=== PATIENT | male | born 1975 | race Caucasian/White ===

== ENCOUNTER 2019-11-21 15:17 | Inpatient (IN) | payer BC, OTHER ==
[~2019-11-21] VITALS: Ht 175.3 cm; Wt 95.5 kg
--- NOTE | 2019-11-21 15:32 | NUR ---
PT PLACED LEVEL ONE STROKE ALERT PER ALINA PAGAN
[2019-11-21 15:43] LABS: BASOPHILS % (AUTO) 0.4 % (0-1); EOSINOPHILS # (AUTO) 0.2 X10'3 (0-0.9); EOSINOPHILS % (AUTO) 3.1 % (0-6); HEMATOCRIT 48.9 % (42.0-52.0); HEMOGLOBIN 16.5 g/dl (14.0-17.9); LYMPHOCYTES # (AUTO) 2.2 X10'3 (1.1-4.8); MEAN CORPUSCULAR HEMOGLOBIN 30.2 PG (27.0-31.0); MEAN CORPUSCULAR HGB CONC 33.8 g/dL (33.0-36.5); MEAN CORPUSCULAR VOLUME 89.4 FL (78-98); MEAN PLATELET VOLUME 6.5 FL (7.4-10.4); MONOCYTES # (AUTO) 0.8 X10'3 (0-0.9); MONOCYTES % (AUTO) 11.1 % (2-12); NEUTROPHILS # (AUTO) 4.2 X10'3 (1.8-7.7); NEUTROPHILS % (AUTO) 55.4 % (42-75); PLATELET COUNT 298 X10'3 (140-440); RED BLOOD COUNT 5.47 X10'6 (4.70-6.10); RED CELL DISTRIBUTION WIDTH 12.3 % (11.5-14.5); WHITE BLOOD COUNT 7.5 X10'3 (4.5-11.0)
[2019-11-21 15:55] LABS: ALANINE AMINOTRANSFERASE 64 U/L (12-78); ALBUMIN 4.3 G/DL (3.4-5.0); ALBUMIN/GLOBULIN RATIO 1.4 (1.1-1.5); ALKALINE PHOSPHATASE 127 IU/L (46-116); ANION GAP 12 (8-16); ASPARTATE AMINO TRANSFERASE 25 U/L (10-37); BILIRUBIN,TOTAL 0.2 MG/DL (0.1-1.0); BLOOD UREA NITROGEN 23 MG/DL (7-18); BUN/CREATININE RATIO 21.3 (5.4-32.0); CALCIUM 9.2 MG/DL (8.5-10.1); CHLORIDE 104 MMOL/L (99-107); CREATININE 1.08 MG/DL (0.60-1.10); GLUCOSE 176 MG/DL (70-104); POTASSIUM 3.3 MMOL/L (3.5-5.1); SODIUM 139 MMOL/L (135-145); TOTAL CARBON DIOXIDE 23.5 MMOL/L (24-32); TOTAL PROTEIN 7.4 G/DL (6.4-8.2); eGFR 74 ML/MIN
[2019-11-21] MEDS ORDERED: ondansetron/PF 4mg/2ml inj IV ONE ×2 (15:55→16:00)
[2019-11-21] MEDS ORDERED: normal saline 1000ML IV soln IVB ONE (16:15)
[2019-11-21] MEDS ORDERED: iohexol 350MG/ML 100ml bottle IV ONE (16:23)
[2019-11-21] MEDS ORDERED: aspirin 81mg tab.chew PO ONE (17:05)
[2019-11-21] MEDS ORDERED: potassium Cl 20 mEq SR tablet PO PRN ×2 (17:25)
[2019-11-21] MEDS ORDERED: magnesium 4gm in 100ml NS 100 ML IV PRN (17:25)
[2019-11-21] MEDS ORDERED: magnesium Cl slow-release 64mg tablet PO PRN (17:25)
[2019-11-21] MEDS ORDERED: acetaminophen 325mg tablet PO PRN (17:25)
[2019-11-21] MEDS ORDERED: potassium CL 10mEq/100ml bag 100 ML IV PRN ×2 (17:25)
[2019-11-21] MEDS ORDERED: ondansetron/PF 4mg/2ml inj IV PRN (17:25)
[2019-11-21] MEDS ORDERED: magnesium 2GM in 50ml NS 50 ML IV PRN (17:25)
[2019-11-21 17:35] LABS: ETHANOL 0.214 GM/DL (0.0-0.010)
[2019-11-21 18:14] LABS: CLARITY,URINE CLEAR (Clear); COLOR,URINE YELLOW (Yellow); GLUCOSE, URINE NEGATIVE (Neg); KETONES,URINE NEGATIVE (Neg); LEUKOCYTE ESTERASE ,URINE NEGATIVE (Neg); NITRITES, URINE NEGATIVE (Neg); OCCULT BLOOD,URINE NEGATIVE (Neg); PROTEIN,URINE NEGATIVE (Neg); UROBILINOGEN,URINE 0.2 E.U/dL (0.2-1.0)
[2019-11-21 18:15] LABS: URINE AMPHETAMINE SCREEN NEGATIVE (Neg); URINE BARBITUATE SCREEN NEGATIVE (Neg); URINE BENZODIAZEPINES SCREEN POSITIVE (Neg); URINE CANNABINOID SCREEN NEGATIVE (Neg); URINE COCAINE SCREEN NEGATIVE (Neg); URINE METHADONE SCREEN NEGATIVE (Neg); URINE OPIATE SCREEN NEGATIVE (Neg); URINE PHENCYCLIDINE SCREEN NEGATIVE (Neg)
[2019-11-21] MEDS ORDERED: SERT50TA10 PO (18:15)
[2019-11-21] MEDS ORDERED: LISI10TA4 PO (18:15)
[2019-11-21] MEDS ORDERED: ANAS1TAB10 PO (18:15)
[2019-11-21] MEDS ORDERED: ATOR40TA72 PO (18:15)
[2019-11-21] MEDS ORDERED: PRAZ5CAP2 PO (18:15)
[2019-11-21] MEDS ORDERED: METH54TA12 PO (18:15)
[2019-11-21] MEDS ORDERED: ALPR0.255 PO (18:15)
[2019-11-21] MEDS ORDERED: RABE20TA28 PO (18:15)
[2019-11-21] MEDS ORDERED: OMEG10006 PO (18:21)
[2019-11-21] MEDS ORDERED: ASPI-611 PO (18:21)
[2019-11-21] MEDS ORDERED: MULT-227 PO (18:21)
[2019-11-21 18:22] LABS: UA COLLECTION TYPE VOIDED
[2019-11-21] MEDS: K and/or MAG REPLACEMENT MC SCH (20:00)
--- NOTE | 2019-11-21 21:15 | NUR ---
RECEIVED PATIENT FROM ER AND ASSUMED PATIENT CARE
[2019-11-21 22:00] VITALS: BP 124/75
[2019-11-22 02:00] VITALS: BP 110/60
[2019-11-22 05:49] LABS: BASOPHILS % (AUTO) 0.4 % (0-1); EOSINOPHILS # (AUTO) 0.2 X10'3 (0-0.9); EOSINOPHILS % (AUTO) 2.6 % (0-6); HEMATOCRIT 45.8 % (42.0-52.0); HEMOGLOBIN 15.5 g/dl (14.0-17.9); LYMPHOCYTES # (AUTO) 1.5 X10'3 (1.1-4.8); LYMPHOCYTES % (AUTO) 22.5 % (21-51); MEAN CORPUSCULAR HEMOGLOBIN 30.2 PG (27.0-31.0); MEAN CORPUSCULAR HGB CONC 33.8 g/dL (33.0-36.5); MEAN CORPUSCULAR VOLUME 89.3 FL (78-98); MEAN PLATELET VOLUME 6.5 FL (7.4-10.4); MONOCYTES # (AUTO) 0.7 X10'3 (0-0.9); MONOCYTES % (AUTO) 11.2 % (2-12); NEUTROPHILS # (AUTO) 4.2 X10'3 (1.8-7.7); NEUTROPHILS % (AUTO) 63.3 % (42-75); PLATELET COUNT 270 X10'3 (140-440); RED BLOOD COUNT 5.13 X10'6 (4.70-6.10); RED CELL DISTRIBUTION WIDTH 12.5 % (11.5-14.5); WHITE BLOOD COUNT 6.7 X10'3 (4.5-11.0)
[2019-11-22 06:09] LABS: ALBUMIN 3.6 G/DL (3.4-5.0); ANION GAP 8 (8-16); BLOOD UREA NITROGEN 18 MG/DL (7-18); BUN/CREATININE RATIO 16.7 (5.4-32.0); CALCIUM 8.6 MG/DL (8.5-10.1); CHLORIDE 107 MMOL/L (99-107); CHOL/HDL RATIO 3.5 (0.00-4.99); CHOLESTEROL 186 MG/DL (0-200); CREATININE 1.08 MG/DL (0.60-1.10); GLUCOSE 103 MG/DL (70-104); HDL CHOLESTEROL 53 MG/DL (35-60); LDL CHOLESTEROL 108 MG/DL (50-100); POTASSIUM 4.3 MMOL/L (3.5-5.1); SODIUM 142 MMOL/L (135-145); TOTAL CARBON DIOXIDE 27.4 MMOL/L (24-32); TRIGLYCERIDES 176 MG/DL (20-135); eGFR 74 ML/MIN
--- NOTE | 2019-11-22 06:22 | NUR ---
REPORT GIVEN TO ROBIN WALLER
--- NOTE | 2019-11-22 06:30 | NUR ---
Patient in room [id number]. I have received report from Janeth WALLER and had the opportunity to ask questions and assume patient care.
[2019-11-22 07:00] VITALS: BP 124/74
[2019-11-22 08:00] VITALS: BP_SYST 141; BP_SYST 142; BP_SYST 146; BP_DIAS 86; BP_DIAS 94; BP_DIAS 99
[2019-11-22] MEDS: K and/or MAG REPLACEMENT MC SCH (08:00)
[2019-11-22 12:00] VITALS: BP 150/91
[2019-11-22 15:00] VITALS: BP 150/88
--- NOTE | 2019-11-22 17:10 | NUR ---
Patient discharged at this time met him in parking lot.
== END 2019-11-22 17:05 | disposition home or self-care (01) | DRG 93 ==
LOC: ER 15:17 → ED HOLD 17:24 → PCU 3S 21:02
PROVIDERS: ADMIT Internal Medicine; ATTEND Internal Medicine
DX: R47.81 Slurred speech (principal); I10 Essential (primary) hypertension; Z86.73 Personal history of transient ischemic attack (TIA), and cerebral infarction without residual deficits; Z95.0 Presence of cardiac pacemaker
CPT/HCPCS: 36415; 70450; 70496; 70498; 71045; 80048; 80053; 80061; 80305; 80320; 81003; 82948; 83735; 84484; 85025; 85610; 86885; 86900; 86901; 87081; 92508; 92616; 93005; 93306; 96374; 97110; 97116; 97162; 99291; G0378; J2405; J7030; Q9967